=== PATIENT | female | born 1945 | race Caucasian/White ===

== ENCOUNTER → 2016-08-30 | Outpatient (CLI) | payer MEDICARE, BC ==
[~2016-08-30] MED LIST: FUROSEMIDE 40 MG/4 ML INJECTION ONE; IOHEXOL 350mg/ml 200ml BOTTLE ONE; SALINE FLUSH 10ml SYRINGE ONE
--- NOTE | 2016-08-30 09:53 | DI ---
Indication: ITS.REASON: N13.30 HX OF RT UPJ OBSTRUCTION PROCEDURE: CT RENAL W/O CONTRAST: Encounter: Initial Comparison: None Technique: Axial CT images were performed through the abdomen and pelvis without intravenous contrast. Coronal and sagittal two-dimensional reformats. Automated Exposure Control and Iterative Reconstruction dose reducing techniques were utilized. Findings: Small groundglass opacities in the lower lobes could be due to atelectasis or scarring. Multiple low-attenuation liver lesions, some of which show fluid attenuation and are consistent with benign cysts while others are indeterminate. There is one in the right lobe on image #23 measuring up to 3 cm in diameter with an attenuation of 40 Hounsfield units. Large hiatal hernia with a partially intrathoracic stomach. The spleen is unremarkable. The pancreas and left adrenal gland are normal. Right adrenal gland shows adenomatous hyperplasia. Right kidney is absent. Left kidney shows a hyperdense cyst in the lateral aspect measuring 1 cm in diameter on axial image #30. There are vascular calcifications present without definite collecting system stone. Prominence of the ureteropelvic junction and mild hydronephrosis. No left ureteral stone. There is a hazy appearance to the abdominal mesentery with increased prominence of central mesenteric lymph nodes. No retroperitoneal adenopathy by CT size criteria. Surgical clips in the pelvis. Bladder is grossly normal. No free fluid. Sigmoid diverticulosis without evidence of acute diverticulitis. No bowel obstruction. Bone windows show demineralization and degenerative changes in the spine. Impression: 1. Indeterminate lesion in the right hepatic lobe could represent a complex or proteinaceous cyst or possibly metastasis. Given history of right nephrectomy there are presumably outside imaging studies which may be able to evaluate the chronicity of this lesion. If outside comparisons are unavailable recommend further evaluation with liver ultrasound. 2. Mild left hydronephrosis without clear cause of obstruction. 3. Changes of right radical nephrectomy with probable postoperative mesenteric infiltration and stranding which is likely chronic. .
--- NOTE | 2016-08-30 11:12 | DI ---
Indication: ITS.REASON: N13.30 HX OF RT UPJ OBSTRUCTION PROCEDURE: NM RENAL SCAN W/LASIX: Encounter: Initial Comparison: Renal CT from today Indication: The patient is a 71-year-old female with a history of prior right nephrectomy and urinary tract infections. This exam is requested to evaluate renal function and renal collecting system patency. Technique: 10.9 mCi of Tc-99m MAG3 was administered intravenously and posterior planar images were obtained. 23 mg of Lasix was administered intravenously at 20 minutes into the study. Time/activity curves were calculated. Findings: Arterial flow images demonstrate good perfusion of the left kidney. Excretory phase images show radiotracer collection and excretion down the collecting system. Tracer excretion is slower than normal. There is no significant effect of the Lasix administration on the rate of excretion with a half-time of 34 minutes. Mild to moderate left hydronephrosis with some retained tracer in the renal pelvis region on the 60 minute post void images. There is no evidence of high-grade obstruction of the kidney. Impression: 1. Normal perfusion of the left kidney. 2. Mild renal functional impairment with somewhat diminished rate of excretion. 3. No evidence of high-grade obstruction. 4. Mild to moderate hydronephrosis. .
== END ==
LOC: IMA 08:34
PROVIDERS: ATTEND Urology
DX: N13.30 Unspecified hydronephrosis (principal); K76.9 Liver disease, unspecified; Z90.5 Acquired absence of kidney
CPT/HCPCS: 74176; 78708; A9562; J1940

== ENCOUNTER 2016-09-18 09:36 | Day surgery (SDC) | payer MEDICARE, BC ==
[~2016-09-18] VITALS: Ht 160 cm; Wt 77.9 kg
[~2016-09-18 09:36] MED LIST changes: +AMLO10TA2 PO; +ASPI-557 PO; +ATOR40TA64 PO; -FUROSEMIDE 40 MG/4 ML INJECTION ONE; -IOHEXOL 350mg/ml 200ml BOTTLE ONE; +IRON18TA PO; +LIDOCAINE 1% (10mg/ml) 2ml SDV INJ ONE; +LISI1TAB11 PO; +METO25TA6 PO; +NORMAL SALINE 1,000 ML IV PRN; -SALINE FLUSH 10ml SYRINGE ONE; +SERT100T PO; +WARF5TAB6 PO
--- OUTSIDE RECORDS SUMMARY | 2016-09-18 09:41 | XMS REPORT ---
Author Author [facility]. Organization [facility] Address [address] [place] [address] Phone [phone] Summary purpose CCDA Sent to [facility] Chief Complaint and Reason for Visit Admit Diagnosis 1 HYPERTENSION NOS Problem list No authorized problems tracked for continuity of care are available for this visit. Encounters No authorized problems tracked for encounter diagnoses are available for this visit. Medications No home medications recorded for this patient visit Allergies, adverse reactions, alerts Allergen Category Ingredient Status Reaction Severity Onset No Allergy Information Available Drug No Allergy Information Available Active Immunizations No immunizations recorded for this patient visit Relevant diagnostic tests and/or laboratory data RESULTS Chemistry Group [id number]:30:00 Result Normal Range Units Sodium 137 134-145 mmol/L Potassium 4.7 3.6-5.0 mmol/L Chloride 99 98-107 mmol/L CO2 27 22-30 mmol/L Glucose 100 75-110 mg/dl BUN H 26 9-20 mg/dl Creatinine 1.6 0.8-1.7 mg/dl Calcium 9.2 8.4-10.2 mg/dl Special Chemistry Group [id number]:00 Result Normal Range Units TSH 0.80 0.50-6.00 uIU/mL History of procedures Procedure Code Code Type Description Date Performed Performing Physician 19956 CPT-4 METABOLIC PANEL TOTAL CA 03-18-2014 KAYCE SANDRA 36413 CPT-4 ASSAY THYROID STIM HORMONE 03-18-2014 KAYCE SANDRA Functional status No functional or cognitive status observations are available for this visit. Vital signs No authorized vital signs are available for this visit. Social history No Social History or smoking status observations were recorded for this visit. ( Unknown if ever smoked.) Treatment Plan No treatment plan text is available for this visit. Hospital discharge instructions No discharge instruction text is available for this visit.
--- OUTSIDE RECORDS SUMMARY | 2016-09-18 09:42 | XMS REPORT ---
Author Author [facility]. Organization [facility] Address [address] [place] [address] Phone [phone] Summary purpose CCDA Sent to [facility] Chief Complaint and Reason for Visit No authorized Reason for Visit (Admitting Diagnosis) is available for this visit. Problem list No authorized problems tracked for continuity of care are available for this visit. Encounters No authorized problems tracked for encounter diagnoses are available for this visit. Medications No medications recorded for this patient visit Allergies, adverse reactions, alerts Allergen Category Ingredient Status Reaction Severity Onset No Allergy Information Available Drug No Allergy Information Available Active Immunizations No immunizations recorded for this patient visit Relevant diagnostic tests and/or laboratory data RESULTS Chemistry Group [id number]:00 Result Normal Range Units Sodium 140 134-145 mmol/L Potassium 3.9 3.6-5.0 mmol/L Chloride L 96 98-107 mmol/L CO2 H 33 22-30 mmol/L Glucose 87 75-110 mg/dl BUN 19 9-20 mg/dl Creatinine 1.19 0.8-1.7 mg/dl Calcium 8.6 8.4-10.2 mg/dl History of procedures No procedures recorded for this patient visit. Functional status No functional or cognitive status [...]
--- OUTSIDE RECORDS SUMMARY | 2016-09-18 09:42 | XMS REPORT ---
Author Author [facility]. Organization [facility] Address [address] [place] [address] Phone [phone] Summary purpose CCDA Sent to [facility] Chief Complaint and Reason for Visit [...] Information Available Drug No Allergy Information Available Inactive No Known Drug Allergy No Known Drug Allergy No Known Drug Allergy Active No Known Food Allergy No Known Food Allergy No Known Food Allergy Active Immunizations No immunizations recorded for this patient visit Relevant diagnostic tests and/or laboratory data RESULTS CBC [id number]:30:00 Result Normal Range Units WBC 6.72 4.8-10.8 x103/mm3 Neutrophil % 50.7 50-70 % Lymph % 35.0 20-50 % [place] % 8.5 1.0-9.0 % Eosinophil % H 4.2 0-4 % Basophil % 1.6 0-2 % Neutrophil # 3.41 3.0-7.0 x103/mm3 Lymph # 2.35 1.0-4.0 x103/mm3 [place] # 0.57 0.0-0.8 x103/mm3 Eosinophil # 0.28 0-0.5 x103/mm3 Basophil # 0.11 0-0.2 x103/mm3 RBC L 3.60 4.20-5.40 x103/mm3 HGB L 10.6 12.0-16.0 g/dl HCT L 33.4 37.0-47.0 % MCV 92.8 81-99 FL MCH 29.4 27.0-31.0 pg MCHC L 31.7 32.0-36.0 g/dl RDW H 16.6 12-15 % Platelet 298 150-400 x103/mm3 MPV 9.2 6.0-10.0 FL Chemistry Group [id number]:30:00 Result Normal Range Units Sodium 143 134-145 mmol/L Potassium 4.7 3.6-5.0 mmol/L Chloride 100 98-107 mmol/L CO2 29 22-30 mmol/L Glucose 96 75-110 mg/dl BUN H 37 9-20 mg/dl Creatinine 1.66 0.8-1.7 mg/dl eGFR 30 ml/min. Calcium 8.9 8.4-10.2 mg/dl History of procedures No procedures [...]
--- OUTSIDE RECORDS SUMMARY | 2016-09-18 09:42 | XMS REPORT ---
Author Author [facility]. Organization [facility] Address [address] [place] [address] Phone [phone] Summary purpose CCDA Sent to [facility] Chief Complaint and Reason for Visit No authorized Reason for Visit (Admitting Diagnosis) is available for this visit. Problem list Condition Status Certainty Chronicity Onset .Altered mental status Resolved Encounters The following conditions tracked for encounter diagnoses were recorded for this visit: Finding or Diagnosis Status Certainty Chronicity Onset .Altered mental status Resolved Medications Discharge Medications Status Medication Directions Current Aleve 220 mg tablet 220 microgram(s) oral oral BID NEEDED for pain xpath-functions" xmlns:xs="[email or web address]" />PRN Current amLODIPine 5 mg tablet 5 miligram(s) oral DAILY Current Aspirin Child 81 mg chewable tablet 81 miligram(s) oral DAILY Current atorvastatin 40 mg tablet 40 miligram(s) oral DAILY Current bisacodyl 5 mg tablet 5 miligram(s) oral oral DAILY NEEDED for constipation xpath-functions" xmlns:xs="[email or web address] [email or web address]" />Bisacodyl 5 mg tabs, EC 1daily PRN Current Colace 100 mg capsule 100 miligram(s) oral DAILY Current Coumadin 1 mg tablet 3 miligram(s) oral DAILY xpath-functions" xmlns:xs="[email or web address] TechnologyLSchema" />1 mg 3 tabs daily or as directed Current Coumadin 5 mg tablet 5 miligram(s) oral DAILY Current HYDROcodone-acetaminophen (HYDROCONE/APAP) 10-325 mg: TABLET 1-2 TAB oral EVERY FOUR HOURS NEEDED for PAIN Current lisinopril 20 mg-hydrochlorothiazide 12.5 mg tablet 20 miligram(s) oral DAILY xpath-functions" xmlns:xs="[email or web address] [email or web address]" />20/12.5 mg tabs 2 daily Current MORPHINE 15 mg: Tab ER 12HR 30 MG oral EVERY TWELVE HOURS Current sertraline 100 mg tablet 100 miligram(s) oral DAILY Current Toprol XL 25 mg tablet,extended release 25 miligram(s) oral DAILY Current Zofran ODT 4 mg disintegrating tablet 4 miligram(s) oral oral QID NEEDED for nausea xpath-functions" xmlns:xs="[email or web address]" />PRN nausea Stopped HYDROcodone 5 mg-acetaminophen 325 mg tablet 10 miligram(s) oral SIX TIMES A DAY NEEDED xpath-functions" xmlns:xs="[email or web address] TechnologyLSchema" />[place] 10/325 mg. 1 or 2 tabs Q4-6 hrs PRN pain Stopped MS Contin 30 mg tablet,extended release 30 miligram(s) oral TID NEEDED xpath-functions" xmlns:xs="[email or web address] TechnologyLSTengradea" />about every 8 hours Allergies, adverse reactions, alerts Allergen Category Ingredient Status Reaction Severity Onset No Allergy Information Available Drug No Allergy Information Available Inactive No Known Drug Allergy No Known Drug Allergy No Known Drug Allergy Active No Known Food Allergy No Known Food Allergy No Known Food Allergy Active Immunizations No immunizations recorded for this patient visit Relevant diagnostic tests and/or laboratory data RESULTS [id number]:36:16 Discharge Summary decreased narcotic dosage, return to normal cognition, no other symptoms CBC [id number]:50:00 Result Normal Range Units WBC 9.76 4.8-10.8 x103/mm3 Neutrophil % H 80.1 50-70 % Lymph % L 10.5 20-50 % [place] % 8.5 1.0-9.0 % Eosinophil % 0.5 0-4 % Basophil % 0.4 0-2 % Neutrophil # H 7.82 3.0-7.0 x103/mm3 Lymph # 1.02 1.0-4.0 x103/mm3 [place] # H 0.83 0.0-0.8 x103/mm3 Eosinophil # 0.05 0-0.5 x103/mm3 Basophil # 0.04 0-0.2 x103/mm3 RBC L 4.06 4.20-5.40 x103/mm3 HGB 12.8 12.0-16.0 g/dl HCT 37.3 37.0-47.0 % MCV 91.9 81-99 FL MCH H 31.5 27.0-31.0 pg MCHC 34.3 32.0-36.0 g/dl RDW 14.9 12-15 % Platelet 237 150-400 x103/mm3 MPV 8.7 6.0-10.0 FL Urinalysis :15:00 Result Normal Range Units Site UNK Color Yellow Urine Appearance Clear Specific [place] 1.005 1.005-1.030 pH 5.5 5.0-9.0 Protein Negative Negative Glucose Negative Negative Ketones Negative Negative Bilirubin Negative Negative Blood AB Trace-inta Negative Nitrite Negative Negative Urobilinogen 0.2 0.20 mg/dl Leukocyte Negative Negative Squamous Epi's N6-10 Urine Bacteria Trace Urine RBC N0-2 Urine WBC N0-2 Chemistry Group :50:00 Result Normal Range Units Sodium L 131 134-145 mmol/L Potassium 4.3 3.6-5.0 mmol/L Chloride L 86 98-107 mmol/L CO2 H 31 22-30 mmol/L Glucose H 111 75-110 mg/dl BUN H 35 9-20 mg/dl Creatinine 1.45 0.8-1.7 mg/dl Total Protein L 5.9 6.3-8.2 g/dl Albumin L 3.3 3.5-5.0 g/dl Calcium L 8.3 8.4-10.2 mg/dl Alk Phos 57 38-126 U/L AST 26 14-36 U/L ALT 17 11-66 U/L T Bili .4 0.2-1.3 mg/dl A/G Ratio 1.3 Ratio Coagulation Group :50:00 Result Normal Range Units Protime H 18.5 9.5-12.3 Sec INR 1.7 Urinalysis with Microscopic :15:00 Result Normal Range Units Site UNK Color Yellow Urine Appearance Clear Specific [place] 1.005 1.005-1.030 pH 5.5 5.0-9.0 Protein Negative Negative Glucose Negative Negative Ketones Negative Negative Bilirubin Negative Negative Blood AB Trace-inta Negative Nitrite Negative Negative Urobilinogen 0.2 0.20 mg/dl Leukocyte Negative Negative Squamous Epi's N6-10 Urine Bacteria Trace Urine RBC N0-2 Urine WBC N0-2 History of procedures No procedures recorded for this patient visit. Functional status Functional Status Finding Observation Time Dexterity Right-handed :59 Impaired Extremity o Yes (Please Specify) xpath-functions" xmlns:xs="http://[email or web address]/2000/XMLSchema" /> xpath-functions" xmlns:xs="http://www.DuPontorg/XMLSchema" />Comment: left leg weakness :59 Weight Bearing Statu Full :07 Transferring/Ambulat Needs Assistance :59 Cane Yes :59 Walker Yes :59 Cognitive Status Finding Observation Time Level of Consciousne Alert :44 Oriented to Person Yes :[address] Yes :44 Oriented to Time Yes :44 Vital signs Type Value Date Respirations 16 :12 Pulse 84 :12 O2 Saturation 94% :12 Systolic Blood Press 142mm/HG :12 Diastolic Blood Pres 67mm/HG :12 Temperature (Fahr) 97.6Degrees :12 Height 63in :07 Weight 153.4LB :07 Social history Type Value Smoking Status CURRENT HEAVY TOBACCO SMOKER Treatment Plan Treatment Plan at continue lower narcotic dosage, follow up next week Hospital discharge instructions Diagnosis altered mental status Diet no restrictions Activity Level no restrictions Personal Items Retur non received Flu Vaccine Given Current/Not Needed Follow up with Dr Ortiz Appointment Date and no made
--- OUTSIDE RECORDS SUMMARY | 2016-09-18 09:42 | XMS REPORT ---
Author Author [facility]. Organization [facility] Address [address] [place] [address] Phone [phone] Summary purpose CCDA Sent to [facility] Chief Complaint and Reason for Visit [...] tests and/or laboratory data RESULTS Chemistry Group [id number]:55:00 Result Normal Range Units Sodium 139 134-145 mmol/L Potassium 4.6 3.6-5.0 mmol/L Chloride 98 98-107 mmol/L CO2 H 31 22-30 mmol/L Glucose 90 75-110 mg/dl BUN H 28 9-20 mg/dl Creatinine 1.4 0.8-1.7 mg/dl Calcium 9.2 8.4-10.2 mg/dl History of procedures No procedures [...]
--- OUTSIDE RECORDS SUMMARY | 2016-09-18 09:42 | XMS REPORT ---
Author Author [facility]. Organization [facility] Address [address] [place] [address] Phone [phone] Summary purpose CCDA Sent to [facility] Chief Complaint and Reason for Visit [...] diagnostic tests and/or laboratory data RESULTS CBC [id number]:55:00 Result Normal Range Units WBC H 11.83 4.8-10.8 x103/mm3 Neutrophil % 69.4 50-70 % Lymph % L 19.5 20-50 % [place] % 7.9 1.0-9.0 % Eosinophil % 2.6 0-4 % Basophil % 0.6 0-2 % Neutrophil # H 8.20 3.0-7.0 x103/mm3 Lymph # 2.31 1.0-4.0 x103/mm3 [place] # H 0.94 0.0-0.8 x103/mm3 Eosinophil # 0.31 0-0.5 x103/mm3 Basophil # 0.07 0-0.2 x103/mm3 RBC 4.67 4.20-5.40 x103/mm3 HGB 14.8 12.0-16.0 g/dl HCT 42.3 37.0-47.0 % MCV 90.6 81-99 FL MCH H 31.7 27.0-31.0 pg MCHC 35.0 32.0-36.0 g/dl RDW 14.9 12-15 % Platelet 262 150-400 x103/mm3 MPV H 10.1 6.0-10.0 FL Chemistry Group [id number]:00 Result Normal Range Units Sodium L 131 134-145 mmol/L Potassium 3.8 3.6-5.0 mmol/L Chloride L 86 98-107 mmol/L CO2 29 22-30 mmol/L Glucose 100 75-110 mg/dl BUN H 30 9-20 mg/dl Creatinine 1.27 0.8-1.7 mg/dl Total Protein 7.3 6.3-8.2 g/dl Albumin 3.8 3.5-5.0 g/dl Calcium 9.3 8.4-10.2 mg/dl Alk Phos 72 38-126 U/L AST 31 14-36 U/L ALT L 10 11-66 U/L T Bili .5 0.2-1.3 mg/dl A/G Ratio 1.1 Ratio History of procedures No procedures recorded for [...]
--- OUTSIDE RECORDS SUMMARY | 2016-09-18 09:42 | XMS REPORT ---
Author Author [facility]. Organization [facility] Address [address] [place] [address] Phone [phone] Summary purpose CCDA Sent to [facility] Chief Complaint and Reason for Visit [...] diagnostic tests and/or laboratory data RESULTS CBC [id number]:25:00 Result Normal Range Units WBC H 14.04 4.8-10.8 x103/mm3 Result Amended on 2016-08-03 at 09:50:28. Previous status was FR. Neutrophil % 67.6 50-70 % Result Amended on 2016-08-03 at 09:50:28. Previous status was FR. Lymph % 23.9 20-50 % Result Amended on 2016-08-03 at 09:50:28. Previous status was FR. [place] % 6.1 1.0-9.0 % Result Amended on 2016-08-03 at 09:50:28. Previous status was FR. Eosinophil % 1.9 0-4 % Result Amended on 2016-08-03 at 09:50:28. Previous status was FR. Basophil % 0.5 0-2 % Result Amended on 2016-08-03 at 09:50:28. Previous status was FR. Neutrophil # H 9.50 3.0-7.0 x103/mm3 Result Amended on 2016-08-03 at 09:50:28. Previous status was FR. Lymph # 3.36 1.0-4.0 x103/mm3 Result Amended on 2016-08-03 at 09:50:28. Previous status was FR. [place] # H 0.85 0.0-0.8 x103/mm3 Result Amended on 2016-08-03 at 09:50:28. Previous status was FR. Eosinophil # 0.26 0-0.5 x103/mm3 Result Amended on 2016-08-03 at 09:50:28. Previous status was FR. Basophil # 0.07 0-0.2 x103/mm3 Result Amended on 2016-08-03 at 09:50:28. Previous status was FR. RBC L 3.13 4.20-5.40 x103/mm3 Result Amended on 2016-08-03 at 09:50:28. Previous status was FR. HGB L 9.1 12.0-16.0 g/dl Result Amended on 2016-08-03 at 09:50:28. Previous status was FR. HCT L 28.4 37.0-47.0 % Result Amended on 2016-08-03 at 09:50:28. Previous status was FR. MCV 90.7 81-99 FL Result Amended on 2016-08-03 at 09:50:28. Previous status was FR. MCH 29.1 27.0-31.0 pg Result Amended on 2016-08-03 at 09:50:28. Previous status was FR. MCHC 32.0 32.0-36.0 g/dl Result Amended on 2016-08-03 at 09:50:28. Previous status was FR. RDW H 15.5 12-15 % Result Amended on 2016-08-03 at 09:50:28. Previous status was FR. Platelet HC 715 150-400 x103/mm3 Result Amended on 2016-08-03 at 09:50:28. Previous status was FR. CALLEDTO PEÑA AT 09:50 08-03-16 BY LAD MPV 9.3 6.0-10.0 FL Result Amended on 2016-08-03 at 09:50:29. Previous status was FR. Manual Differential :25:00 Result Normal Range Units Seg 64.0 Lymph 29.0 [place] 4.0 Eos 2.0 Bands 1.0 Anisocytosis 1+ Polychromatic 1+ Rouleaux 1+ Chemistry Group :25:00 Result Normal Range Units Sodium 138 134-145 mmol/L Potassium H 5.4 3.6-5.0 mmol/L Chloride 99 98-107 mmol/L CO2 30 22-30 mmol/L Glucose 108 75-110 mg/dl BUN H 31 9-20 mg/dl Creatinine H 1.96 0.8-1.7 mg/dl eGFR 25 ml/min. Calcium 9.0 8.4-10.2 mg/dl History of procedures No procedures [...]
--- OUTSIDE RECORDS SUMMARY | 2016-09-18 09:42 | XMS REPORT | Continuity Of Care Document ---
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 Suggested INR therapeutic range for oral anticoagulant therapy: (Stabilized anticoagulated patients) Routine Therapy: 2.0 to 3.0 Recurrent Myocardial Infarction: 2.5 to 3.5 Mechanical Prosthetic Valves: 2.5 to 3.5 November 18, 2015 8:00am Allergies and Adverse Reactions Allergies and Adverse Reactions Patient Unit Number: [id number] Agent Type Reaction Severity Status NO KNOWN ALLERGIES Drug Allergy Unknown Unknown Active Problem List Problem List Visit/Account #[id number] (November 18, 2015 7:16am - November 19, 2015 9:54am) Acute Problems: Code/Condition Comments Documented Start Date Documented Resolved Date Code (s) Lumbar disc prolapse with compression radiculopathy ICD10: M51.16 Lumbar disc herniation with radiculopathy ICD9: 722.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 SNOMED: 126266780 Lumbar disc herniation with radiculopathy Chronic Problems: Synovial cyst of lumbar facet joint ICD10: M85.69 Synovial cyst of lumbar facet joint ICD9: 733.20 Synovial cyst of lumbar facet joint SNOMED: [id number] Synovial cyst of lumbar facet joint Plan of Care Plan Of Care Visit/Account #[id number] (November 18, 2015 7:16am - November 19, 2015 9:54am) Patient Instructions Instructions Diazepam Vital Signs Vital Signs Visit/Account #[id number] (November 18, 2015 7:16am - November 19, 2015 9:54am) Sign First Result Last Result Code(s) Blood Pressure 163/ 73 mm[Hg] On November 18, 2015 11:55am 174/ 82 mm[Hg] On November 19, 2015 9:19am 8480-6 BP Systolic Heart Rate/Pulse Pulse Rate (adult): 52 /min On November 18, 2015 11:55am Pulse Rate (adult): 69 /min On November 19, 2015 9:19am 8867-4 Heart Rate 8893-0 Pulse rate Respiratory Rate Respiratory Rate: 13 /min On November 18, 2015 11:55am Respiratory Rate: 16 /min On November 19, 2015 9:19am 9279-1 Respiratory rate Temperature in Fahrenheit Temperature (Fahrenheit): 98.1 [degF] On November 18, 2015 7:33am Temperature (Fahrenheit): 97.8 [degF] On November 19, 2015 9:19am 8310-5 Body Temperature Functional Status Functional and Cognitive Status No Functional Status Data Medications Home Medications - Medications that the patient was taking prior to arrival at the hospital Visit/Account #[id number] (November 18, 2015 7:16am - November 19, 2015 9:54am) Medication Route Sig/Schedule Precondition/Indication Comments/Instructions Codes Sertraline Hcl(SERTRALINE HCL) 100 MG TABLET Dose: 100 MG ORAL DAILY Sertraline 100 MG Oral Tablet (RxNorm): 294540 Sertraline Hcl (SERTRALINE HCL) [facility]: 84994941890 Lisinopril-Hctz 20-12.5 Mg Tab(LISINOPRIL/HYDROCHLOROTHIAZIDE) 1 EACH TABLET Dose: 1 EACH ORAL TWICE A DAY Hydrochlorothiazide 12.5 MG / Lisinopril 20 MG Oral Tablet (RxNorm): 529434 Lisinopril-Hctz 20-12.5 Mg Tab (LISINOPRIL/HYDROCHLOROTHIAZIDE) NDC: 88124248910 Metoprolol Succinate(METOPROLOL SUCCINATE) 25 MG TAB.ER.24H Dose: 25 MG ORAL DAILY 24 HR metoprolol succinate 25 MG Extended Release Oral Tablet (RxNorm): 781592 Metoprolol Succinate (METOPROLOL SUCCINATE) NDC: 63556401255 LIPITOR(ATORVASTATIN) 40 MG TAB Dose: 40 MG ORAL AT BEDTIME atorvastatin 40 MG Oral Tablet [Lipitor] (RxNorm): 727030 LIPITOR (ATORVASTATIN) NDC: 22707427907 HYDROcodone BIT/ACETAMINOPHEN 7.5-325 MG(HYDROcodone BIT/ACETAMINOPHEN) 1 EACH TABLET Dose: 1-2 TAB ORAL Q4H PAIN Acetaminophen 325 MG / Hydrocodone Bitartrate 7.5 MG Oral Tablet [Lorcet] ( RxNorm): 6566416 HYDROcodone BIT/ACETAMINOPHEN 7.5-325 MG (HYDROcodone BIT/ACETAMINOPHEN) NDC: 11857640317 Low Dose Aspirin(ASPIRIN) 81 MG TABLET.DR Dose: 81 MG ORAL DAILY Aspirin 81 MG Delayed Release Oral Tablet [Channing Aspirin] (RxNorm): 531581 Low Dose Aspirin (ASPIRIN) NDC: 14601085653 STOOL SOFTENER(DOCUSATE SODIUM) 100 MG TABLET Dose: 2 TAB ORAL DAILY Docusate Sodium 100 MG Oral Tablet (RxNorm): 3199954 STOOL SOFTENER (DOCUSATE SODIUM) NDC: 26280108077 Warfarin Sodium(WARFARIN SODIUM) 5 MG TABLET Dose: 2.5 MG ORAL DAILY Warfarin Sodium 5 MG Oral Tablet (RxNorm): 576305 Warfarin Sodium (WARFARIN SODIUM) NDC: 77246863750 NORCO 7.5-325 TABLET(HYDROcodone BIT/ACETAMINOPHEN) 1 TAB TABLET Dose: 1-2 TAB ORAL EVERY 4 HRS WHILE AWAKE Acetaminophen 325 MG / Hydrocodone Bitartrate 7.5 MG Oral Tablet (RxNorm): 244219 NORCO 7.5-325 TABLET (HYDROcodone BIT/ACETAMINOPHEN) NDC: 24152078179 MORPHINE SULFATE ER(MORPHINE SULFATE) 30 MG CAP.ER.PEL Dose: 30 MG ORAL EVERY 12 HOURS Morphine Sulfate 30 MG Extended Release Oral Capsule (RxNorm): 722135 MORPHINE SULFATE ER (MORPHINE SULFATE) NDC: 15672652339 NORVASC(AmLODIpine BESYLATE) 5 MG TAB Dose: 2 TAB ORAL DAILY Amlodipine 5 MG Oral Tablet [Norvasc] (RxNorm): 450844 NORVASC (AmLODIpine BESYLATE) NDC: 52510448980 COUMADIN(WARFARIN SODIUM) 5 MG TAB Dose: 5 MG ORAL DIRECTED Rx Instructions: take 1/2 tab for 3 days take 1 tab for 1 day Take 1/2 tab for 3 days Warfarin Sodium 5 MG Oral Tablet [Coumadin] (RxNorm): 347325 COUMADIN (WARFARIN SODIUM) NDC: 47910305957 Inpatient/Ordered Medications - Medications administered during hospital visit Visit/Account #[id number] (November 18, 2015 7:16am - November 19, 2015 9:54am) Medication Route Sig/Schedule Precondition/Indication Comments/Instructions Codes IV Medication Carriers: LR(LACTATED RINGER'S) 1000 ML INJECTION Dose: 1000 ML INTRAVEN .Q8H (Rate: 125 MLS/HR Duration: 8 HR) Carriers: Calcium Chloride 0.0014 MEQ/ML / Potassium Chloride 0.004 MEQ/ML / Sodium Chloride 0.103 MEQ (RxNorm): 547151 LR (LACTATED RINGER'S) NDC: 48603803527 IV Medication Carriers: ANCEF 2 GM/50 ML(CEFAZOLIN SODIUM/NORMAL SALINE) 2 GM/50 ML INJECTION Dose: 50 ML INTRAVEN KIRBY (Rate: 100 MLS/HR Duration: 30 MIN) Clinical Indication: ABX Preop Prophylaxis Label Comments: REFRIGERATE * PROTECT FROM LIGHT * ANCEF=KEFZOL Expires 24 HRS after dispensed XYLOCAINE-MPF 1% INJ(LIDOCAINE HCL/PF) 20 MG/2 ML INJECTION Dose: 0.1 ML INTRADERM NEEDED Label Comments: For peripheral line insertion site. Lidocaine Hydrochloride 10 MG/ML Injectable Solution [Xylocaine] (RxNorm): 9795727 XYLOCAINE-MPF 1% INJ (LIDOCAINE HCL/PF) NDC: 23155790155 THROMBIN 5000 UNIT SOLUTION Dose: 5000 UNIT TOPICALLY .STK-MED (THROMBIN) NDC: 56433544296 GELFOAM SPONGE 12-7MM(GELATIN) 1 EA MISC Dose: 1 EA TOPICALLY .STK-MED GELFOAM SPONGE 12-7MM (GELATIN) NDC: 69066628213 MARCAINE 0.5% INJ(BUPIVACAINE 0.5%) 50 ML INJECTION Dose: 50 ML Route .[facility] Bupivacaine Hydrochloride 5 MG/ML Injectable Solution [Marcaine] (RxNorm): 2116665 MARCAINE 0.5% INJ (BUPIVACAINE 0.5%) NDC: 73172377892 DECADRON INJ(DEXAMETHASONE SOD PHOS) 10 MG/ML INJECTION Dose: 0.8 ML INTRAVEN .PSCU.KIRBY Dexamethasone 10 MG/ML Injectable Solution (RxNorm): 615238 DECADRON INJ (DEXAMETHASONE SOD PHOS) NDC: 97616111338 VERSED INJ(MIDAZOLAM HCL) 2 MG/2 ML INJECTION Dose: 2 ML INTRAVEN .PSCU.KIRBY 2 ML Midazolam 1 MG/ML Injection (RxNorm): 0162915 VERSED INJ (MIDAZOLAM HCL) NDC: 74665333468 IV Medication Carriers: MORPHINE SULFATE 30 MG/30 ML SYRINGE Dose: 30 MG INTRAVEN PRN (Rate: 0 MLS/HR Duration: 0 SEC) PRN Reason: PAIN Label Comments: CONC: 1 MG/ML 1 MG/6 MIN AND 30 MG/4 HR LOCKOUT BASAL INFUSION RATE: ____ MG/HR=____ ML/HR DO NOT USE ALARIS BOLUS FEATURE MAY INCREASE FALL RISK Carriers: Morphine Sulfate 1 MG/ML Injectable Solution (RxNorm): 240776 (MORPHINE SULFATE) NDC: 34623475547 Solu-MEDROL INJ(MethylPREDNISolone SOD SUCC) 125 MG/2 ML INJECTION Dose: 2 ML INTRAVEN NOW Methylprednisolone 62.5 MG/ML Injectable Solution [Solu-Medrol] (RxNorm): 707402 Solu-MEDROL INJ (MethylPREDNISolone SOD SUCC) NDC: 85720388081 IV Medication Carriers: LR(LACTATED RINGER'S) 1000 ML INJECTION Dose: 1000 ML INTRAVEN .Q10H (Rate: 100 MLS/HR Duration: 10 HR) Carriers: Calcium Chloride 0.0014 MEQ/ML / Potassium Chloride 0.004 MEQ/ML / Sodium Chloride 0.103 MEQ (RxNorm): 333330 LR (LACTATED RINGER'S) NDC: 79016994790 IV Medication Carriers: ANCEF 2 GM/50 ML(CEFAZOLIN SODIUM/NORMAL SALINE) 2 GM/50 ML INJECTION Dose: 50 ML INTRAVEN Q8S (Rate: 100 MLS/HR Duration: 30 MIN) Clinical Indication: ABX Preop Prophylaxis Label Comments: Refrigerate IVPB * Protect from light * NORVASC(AmLODIpine BESYLATE) 5 MG TAB Dose: 10 MG ORAL DAILY Label Comments: MAY INCREASE FALL RISK Amlodipine 5 MG Oral Tablet [Norvasc] (RxNorm): 564967 NORVASC (AmLODIpine BESYLATE) NDC: 45689122426 LIPITOR(ATORVASTATIN) 40 MG TAB Dose: 40 MG ORAL AT BEDTIME Label Comments: TERATOGENIC. WOMEN SHOULD NOT HANDLE OR CRUSH. atorvastatin 40 MG Oral Tablet [Lipitor] (RxNorm): 590590 LIPITOR (ATORVASTATIN) NDC: 80057295127 COLACE(DOCUSATE SODIUM) 100 MG CAP Dose: 200 MG ORAL DAILY Docusate Sodium 100 MG Oral Capsule (RxNorm): 3668791 COLACE (DOCUSATE SODIUM) NDC: 34566465137 ZESTORETIC 20/12.5(HCTZ/LISINOPRIL) 1 TAB TAB Dose: 1 TAB ORAL TWICE A DAY Label Comments: MAY INCREASE FALL RISK Hydrochlorothiazide 12.5 MG / Lisinopril 20 MG Oral Tablet (RxNorm): 390173 ZESTORETIC 20/12.5 (HCTZ/LISINOPRIL) NDC: 19028275557 TOPROL XL(METOPROLOL SUCCINATE) 25 MG TAB Dose: 25 MG ORAL DAILY Label Comments: MAY INCREASE FALL RISK 24 HR metoprolol succinate 25 MG Extended Release Oral Tablet [Toprol] (RxNorm ): 330506 TOPROL XL (METOPROLOL SUCCINATE) NDC: 02687158757 ZOLOFT(SERTRALINE HCL) 100 MG TAB Dose: 100 MG ORAL DAILY Label Comments: MAY INCREASE FALL RISK Sertraline 100 MG Oral Tablet [Zoloft] (RxNorm): 379049 ZOLOFT (SERTRALINE HCL) NDC: 87678624997 MS CONTIN(MORPHINE SULFATE) 30 MG TAB Dose: 30 MG ORAL EVERY 12 HOURS Label Comments: MAY INCREASE FALL RISK Morphine Sulfate 30 MG Extended Release Oral Tablet (RxNorm): 113105 MS CONTIN (MORPHINE SULFATE) NDC: 18669008832 Discharge Medications - Medications that patient should continue to take. Review with physician Visit/Account #[id number] (November 18, 2015 7:16am - November 19, 2015 9:54am) Medication Route Sig/Schedule Precondition/Indication Comments/Instructions Codes Sertraline Hcl(SERTRALINE HCL) 100 MG TABLET Dose: 100 MG ORAL DAILY Sertraline 100 MG Oral Tablet (RxNorm): 222672 Sertraline Hcl (SERTRALINE HCL) NDC: 72714301451 Lisinopril-Hctz 20-12.5 Mg Tab(LISINOPRIL/HYDROCHLOROTHIAZIDE) 1 EACH TABLET Dose: 1 EACH ORAL TWICE A DAY Hydrochlorothiazide 12.5 MG / Lisinopril 20 MG Oral Tablet (RxNorm): 085462 Lisinopril-Hctz 20-12.5 Mg Tab (LISINOPRIL/HYDROCHLOROTHIAZIDE) NDC: 16966418334 Metoprolol Succinate(METOPROLOL SUCCINATE) 25 MG TAB.ER.24H Dose: 25 MG ORAL DAILY 24 HR metoprolol succinate 25 MG Extended Release Oral Tablet (RxNorm): 654578 Metoprolol Succinate (METOPROLOL SUCCINATE) NDC: 81884181486 LIPITOR(ATORVASTATIN) 40 MG TAB Dose: 40 MG ORAL AT BEDTIME atorvastatin 40 MG Oral Tablet [Lipitor] (RxNorm): 097615 LIPITOR (ATORVASTATIN) NDC: 38506635163 HYDROcodone BIT/ACETAMINOPHEN 7.5-325 MG(HYDROcodone BIT/ACETAMINOPHEN) 1 EACH TABLET Dose: 1-2 TAB ORAL Q4H PAIN Acetaminophen 325 MG / Hydrocodone Bitartrate 7.5 MG Oral Tablet [Lorcet] ( RxNorm): 1524244 HYDROcodone BIT/ACETAMINOPHEN 7.5-325 MG (HYDROcodone BIT/ACETAMINOPHEN) NDC: 24983795074 Low Dose Aspirin(ASPIRIN) 81 MG TABLET.DR Dose: 81 MG ORAL DAILY Aspirin 81 MG Delayed Release Oral Tablet [Channing Aspirin] (RxNorm): 200001 Low Dose Aspirin (ASPIRIN) NDC: 58617421265 STOOL SOFTENER(DOCUSATE SODIUM) 100 MG TABLET Dose: 2 TAB ORAL DAILY Docusate Sodium 100 MG Oral Tablet (RxNorm): 3959033 STOOL SOFTENER (DOCUSATE SODIUM) NDC: 53014137446 MORPHINE SULFATE ER(MORPHINE SULFATE) 30 MG CAP.ER.PEL Dose: 30 MG ORAL EVERY 12 HOURS Morphine Sulfate 30 MG Extended Release Oral Capsule (RxNorm): 075687 MORPHINE SULFATE ER (MORPHINE SULFATE) NDC: 22499606911 NORVASC(AmLODIpine BESYLATE) 5 MG TAB Dose: 2 TAB ORAL DAILY Amlodipine 5 MG Oral Tablet [Norvasc] (RxNorm): 319819 NORVASC (AmLODIpine BESYLATE) NDC: 95755488464 COUMADIN(WARFARIN SODIUM) 5 MG TAB Dose: 5 MG ORAL DIRECTED Rx Instructions: take 1/2 tab for 3 days take 1 tab for 1 day Take 1/2 tab for 3 days Warfarin Sodium 5 MG Oral Tablet [Coumadin] (RxNorm): 274128 COUMADIN (WARFARIN SODIUM) NDC: 21204585867 Valium(DIAZEPAM) 5 MG TAB Dose: 5 MG ORAL 3 TIMES A DAY SPASM Diazepam 5 MG Oral Tablet (RxNorm): 218405 Valium (DIAZEPAM) NDC: 08105921598 History Of Encounters Encounters Visit/Account #[id number] (November 18, 2015 7:16am - November 19, 2015 9:54am) Account Status Physican Of Record Reason For Visit Visit Diagnosis Start Date/Time Stop Date/Time [facility] Z[place] MD LOW BACK PAIN M54.5: LOW BACK PAIN ICD10 Nov 18, 2015 7:16am Nov 18, 2015 7:16am Jeff DEBRA ZAPATA MD LOW BACK PAIN M54.5: LOW BACK PAIN ICD10 Nov 18, 2015 11:58am Nov 19, 2015 9:54am History of Procedures Procedure List No procedures recorded. Discharge Instructions Discharge Instructions Visit/Account #[id number] (November 18, 2015 7:16am - November 19, 2015 9:54am) DISCHARGE INSTRUCTIONS Physician Documentation PROVIDER INSTRUCTIONS Discharge Diet As Tolerated Discharge Diet As Tolerated WOUND/INCISION/CATHETER CARE Incision/Wound Care Clean the ekaterina after taking a shower using spray peroxide + Q-tips and rubbing alcohol. Then apply NormlGel directly over the ekaterina and reapply the dressing. Do not seal off the incision completely, it needs to air out. You do not need to redress the wound after the ekaterina are out. REASON TO CALL PROVIDER Notify Physician if: incision becomes reddened, hot to the touch, pus like drainage or drainage with a foul odor temperature >101.5 any questions/concerns/problems FOLLOW UP APPOINTMENTS Follow Up With With Dr. Zapata Monday November 30, 2015 @ 9:45 a.m. Social History Social History No Social History Data. Immunizations Immunizations Patient Unit Number: [id number] Immunizations No immunizations recorded.
--- OUTSIDE RECORDS SUMMARY | 2016-09-18 09:43 | XMS REPORT ---
Author Author [facility]. Organization [facility] Address [address] [place] [address] Phone [phone] Summary purpose CCDA Sent to [facility] Chief Complaint and Reason for Visit No [...] visit Relevant diagnostic tests and/or laboratory data No authorized results are available for this patient visit History of procedures No procedures recorded for this patient visit. Functional status No functional or cognitive status observations are available for this visit. Vital signs Type Value Date Respirations 20 :00 Pulse 65 :00 O2 Saturation 97% :00 Systolic Blood Press 200mm/HG :00 Diastolic Blood Pres 105mm/HG :00 Temperature (Fahr) 98.5Degrees :00 Social history No Social History or smoking status observations were recorded for this visit. ( Unknown if ever smoked.) Treatment Plan No treatment plan text is available for this visit. Hospital discharge instructions No discharge instruction text is available for this visit.
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
--- OUTSIDE RECORDS SUMMARY | 2016-09-18 09:43 | XMS REPORT ---
Author Author [facility]. Organization [facility] Address [address] [place] [address] Phone [phone] Summary purpose CCDA Sent to [facility] Chief Complaint and Reason for Visit No [...] diagnostic tests and/or laboratory data RESULTS CBC [id number] Result Normal Range Units WBC HC 15.11 4.8-10.8 x103/mm3 Result Amended on 2015-06-30 at 13:18:33. Previous status was FR. Neutrophil % H 80.7 50-70 % Result Amended on 2015-06-30 at 13:18:33. Previous status was FR. Lymph % L 10.5 20-50 % Result Amended on 2015-06-30 at 13:18:33. Previous status was FR. Sampson % 8.4 1.0-9.0 % Result Amended on 2015-06-30 at 13:18:33. Previous status was FR. Eosinophil % 0.1 0-4 % Result Amended on 2015-06-30 at 13:18:33. Previous status was FR. Basophil % 0.3 0-2 % Result Amended on 2015-06-30 at 13:18:33. Previous status was FR. Neutrophil # H 12.19 3.0-7.0 x103/mm3 Result Amended on 2015-06-30 at 13:18:33. Previous status was FR. Lymph # 1.59 1.0-4.0 x103/mm3 Result Amended on 2015-06-30 at 13:18:33. Previous status was FR. Sampson # H 1.27 0.0-0.8 x103/mm3 Result Amended on 2015-06-30 at 13:18:33. Previous status was FR. Eosinophil # 0.02 0-0.5 x103/mm3 Result Amended on 2015-06-30 at 13:18:33. Previous status was FR. Basophil # 0.04 0-0.2 x103/mm3 Result Amended on 2015-06-30 at 13:18:33. Previous status was FR. RBC 5.04 4.20-5.40 x103/mm3 Result Amended on 2015-06-30 at 13:18:34. Previous status was FR. HGB 15.7 12.0-16.0 g/dl Result Amended on 2015-06-30 at 13:18:34. Previous status was FR. HCT 46.1 37.0-47.0 % Result Amended on 2015-06-30 at 13:18:34. Previous status was FR. MCV 91.5 81-99 FL Result Amended on 2015-06-30 at 13:18:34. Previous status was FR. MCH H 31.2 27.0-31.0 pg Result Amended on 2015-06-30 at 13:18:34. Previous status was FR. MCHC 34.1 32.0-36.0 g/dl Result Amended on 2015-06-30 at 13:18:34. Previous status was FR. RDW 13.9 12-15 % Result Amended on 2015-06-30 at 13:18:34. Previous status was FR. Platelet 237 150-400 x103/mm3 Result Amended on 2015-06-30 at 13:18:34. Previous status was FR. MPV 9.8 6.0-10.0 FL Result Amended on 2015-06-30 at 13:18:34. Previous status was FR. Manual Differential [id number] Result Normal Range Units Seg 71.0 Lymph 17.0 Sampson 7.0 Bands 5.0 Chemistry Group [id number] Result Normal Range Units Sodium 136 134-145 mmol/L Potassium L 3.5 3.6-5.0 mmol/L Chloride L 93 98-107 mmol/L CO2 29 22-30 mmol/L Glucose H 112 75-110 mg/dl BUN H 21 9-20 mg/dl Creatinine 1.20 0.8-1.7 mg/dl Total Protein 7.7 6.3-8.2 g/dl Albumin 3.9 3.5-5.0 g/dl Calcium 9.4 8.4-10.2 mg/dl Alk Phos 80 38-126 U/L AST 31 14-36 U/L ALT 13 11-66 U/L T Bili 1.0 0.2-1.3 mg/dl A/G Ratio 1.0 Ratio Special Chemistry Group [id number] Result Normal Range Units Troponin I < 0.06 ng/ml NEGATIVE - 0.06-0.30 ng/ml INCONCLUSIVE - 0.31-0.64 ng/ml; Suggest Repeating in 2-4 hours POSITIVE - >0.64 ng/ml; Probable AMI History of procedures No procedures recorded for [...]
--- OUTSIDE RECORDS SUMMARY | 2016-09-18 09:44 | XMS REPORT ---
Author Author [facility]. Organization [facility] Address [address] [place] [address] Phone [phone] Summary purpose CCDA Sent to [facility] Chief Complaint and Reason for Visit Admit [...] tests and/or laboratory data RESULTS Chemistry Group [id number] Result Normal Range Units Sodium 139 134-145 mmol/L Potassium 4.6 3.6-5.0 mmol/L Chloride 98 98-107 mmol/L CO2 H 31 22-30 mmol/L Glucose 90 75-110 mg/dl BUN H 28 9-20 mg/dl Creatinine 1.4 0.8-1.7 mg/dl Calcium 9.2 8.4-10.2 mg/dl History of procedures Procedure Code Code Type Description Date Performed Performing Physician [id number] CPT-4 METABOLIC PANEL TOTAL CA [facility]15-[facility] Functional status No functional or cognitive status [...]
--- OUTSIDE RECORDS SUMMARY | 2016-09-18 09:44 | XMS REPORT ---
Author Author [facility]. Organization [facility] Address [address] [place] [address] Phone [phone] Summary purpose CCDA Sent to [facility] Chief Complaint and Reason for [...] diagnostic tests and/or laboratory data RESULTS CBC [id number] Result Normal Range Units WBC 7.62 4.8-10.8 x103/mm3 Neutrophil % 57.5 50-70 % Lymph % 27.8 20-50 % [place] % H 9.1 1.0-9.0 % Eosinophil % H 5.2 0-4 % Basophil % 0.4 0-2 % Neutrophil # 4.38 3.0-7.0 x103/mm3 Lymph # 2.12 1.0-4.0 x103/mm3 [place] # 0.69 0.0-0.8 x103/mm3 Eosinophil # 0.40 0-0.5 x103/mm3 Basophil # 0.03 0-0.2 x103/mm3 RBC 4.50 4.20-5.40 x103/mm3 HGB 14.4 12.0-16.0 g/dl HCT 42.0 37.0-47.0 % MCV 93.3 81-99 FL MCH H 32.0 27.0-31.0 pg MCHC 34.3 32.0-36.0 g/dl RDW 14.6 12-15 % Platelet 252 150-400 x103/mm3 MPV 9.9 6.0-10.0 FL Chemistry Group [id number] Result Normal Range Units Sodium 138 134-145 mmol/L Potassium 4.0 3.6-5.0 mmol/L Chloride L 91 98-107 mmol/L CO2 H 34 22-30 mmol/L Glucose 90 75-110 mg/dl BUN H 26 9-20 mg/dl Creatinine 1.26 0.8-1.7 mg/dl eGFR 51 ml/min. Total Protein 6.7 6.3-8.2 g/dl Albumin 3.5 3.5-5.0 g/dl Calcium 9.4 8.4-10.2 mg/dl Alk Phos 55 38-126 U/L AST 18 14-36 U/L ALT L 8 11-66 U/L T Bili .4 0.2-1.3 mg/dl A/G Ratio 1.1 Ratio History [...]
--- OUTSIDE RECORDS SUMMARY | 2016-09-18 09:44 | XMS REPORT ---
Author Author [facility]. Organization [facility] Address [address] [place] [address] Phone [phone] Summary purpose CCDA Sent to [facility] Chief Complaint and Reason for Visit No authorized Reason for Visit (Admitting Diagnosis) is available for this visit. Problem list Condition Status Certainty Chronicity Onset .Fever Discharged .Dehydration Discharged Encounters The following conditions tracked for encounter diagnoses were recorded for this visit: Finding or Diagnosis Status Certainty Chronicity Onset .Fever Discharged .Dehydration Discharged Medications Discharge Medications Status Medication Directions Current acetaminophen (TYLENOL) 500 mg: TABLET 1-2 TAB oral EVERY SIX HOURS NEEDED for PAIN Current amLODIPine (NORVASC): TABLET 10 MG oral DAILY Current ASPIRIN 81 mg: TAB CHEW 81 MG oral DAILY Current atorvastatin (LIPITOR): TABLET 40 MG oral HS Current CEFTRIAXONE (ROCEPHIN) 1 GM injection Give IV DAILY Current hydrochlorothiazide (HCTZ): capsule 12.5 MG oral DAILY Current metoprolol succinate (TOPROL XL) 25 mg: ER 24HR Tab 25 MG oral DAILY Current omeprazole (PRILOSEC): Cap DR 20 MG oral BEFORE BREAKFAST Current sertraline (ZOLOFT) 50 mg: TABLET 100 MG oral HS Stopped Aleve 220 mg tablet 220 microgram(s) oral BID NEEDED xpath-functions" xmlns:xs="[email or web address]/[email or web address] Ther[employer] PowerLSchema" />PRN Stopped amLODIPine 5 mg tablet 5 miligram(s) oral DAILY Stopped Aspirin Child 81 mg chewable tablet 81 miligram(s) oral DAILY Stopped atorvastatin 40 mg tablet 40 miligram(s) oral DAILY Stopped bisacodyl 5 mg tablet 5 miligram(s) oral DAILY NEEDED xpath-functions" xmlns:xs="[email or web address]/XMLSchema" />Bisacodyl 5 mg tabs, EC 1daily PRN Stopped Colace 100 mg capsule 100 miligram(s) oral DAILY Stopped Coumadin 1 mg tablet 3 miligram(s) oral DAILY xpath-functions" xmlns:xs="[email or web address]/[employer] Ther[employer] PowerLSchema" />1 mg 3 tabs daily or as directed Stopped Coumadin 5 mg tablet 5 miligram(s) oral DAILY Stopped HYDROcodone 5 mg-acetaminophen 325 mg tablet 10 miligram(s) oral SIX TIMES A DAY NEEDED xpath-functions" xmlns:xs="http://[email or web address] Software/2000/[employer] Ther[employer] PowerLSchema" />Ezel 10/325 mg. 1 or 2 tabs Q4-6 hrs PRN pain Stopped lisinopril 20 mg-hydrochlorothiazide 12.5 mg tablet 20 miligram(s) oral DAILY xpath-functions" xmlns:xs="http://wwwComposite Software/2000/[employer] Ther[employer] PowerLSchema" />20/12.5 mg tabs 2 daily Stopped MS Contin 30 mg tablet,extended release 30 miligram(s) oral TID NEEDED xpath-functions" xmlns:xs="http://wwwComposite Software/2000/[employer] PowerLSchema" />about every 8 hours Stopped sertraline 100 mg tablet 100 miligram(s) oral DAILY Stopped Toprol XL 25 mg tablet,extended release 25 miligram(s) oral DAILY Stopped Zofran ODT 4 mg disintegrating tablet 4 miligram(s) oral QID NEEDED xpath-functions" xmlns:xs="http://wwwComposite Software/[employer] Ther[employer]LSchema" />PRN nausea Allergies, adverse reactions, alerts Allergen Category Ingredient Status Reaction Severity Onset No Allergy Information Available Drug No Allergy Information Available Inactive No Known Drug Allergy No Known Drug Allergy No Known Drug Allergy Active No Known Food Allergy No Known Food Allergy No Known Food Allergy Active Immunizations No immunizations recorded for this patient visit Relevant diagnostic tests and/or laboratory data RESULTS [id number]:35:54 Discharge Summary home on [facility] CBC 14-46-164419:10:00 Result Normal Range Units WBC H 11.87 4.8-10.8 x103/mm3 Neutrophil % 66.4 50-70 % Lymph % L 19.3 20-50 % [place] % H 9.8 1.0-9.0 % Eosinophil % 4.0 0-4 % Basophil % 0.5 0-2 % Neutrophil # H 7.88 3.0-7.0 x103/mm3 Lymph # 2.29 1.0-4.0 x103/mm3 [place] # H 1.16 0.0-0.8 x103/mm3 Eosinophil # 0.48 0-0.5 x103/mm3 Basophil # 0.06 0-0.2 x103/mm3 RBC L 2.93 4.20-5.40 x103/mm3 HGB L 8.5 12.0-16.0 g/dl HCT L 26.3 37.0-47.0 % MCV 89.8 81-99 FL MCH 29.0 27.0-31.0 pg MCHC 32.3 32.0-36.0 g/dl RDW 15.0 12-15 % Platelet 369 150-400 x103/mm3 MPV 9.4 6.0-10.0 FL :15:00 Result Normal Range Units WBC H 11.84 4.8-10.8 x103/mm3 Neutrophil % H 72.8 50-70 % Lymph % L 13.5 20-50 % [place] % H 10.3 1.0-9.0 % Eosinophil % 2.9 0-4 % Basophil % 0.5 0-2 % Neutrophil # H 8.62 3.0-7.0 x103/mm3 Lymph # 1.60 1.0-4.0 x103/mm3 [place] # H 1.22 0.0-0.8 x103/mm3 Eosinophil # 0.34 0-0.5 x103/mm3 Basophil # 0.06 0-0.2 x103/mm3 RBC L 3.06 4.20-5.40 x103/mm3 HGB L 8.8 12.0-16.0 g/dl HCT L 27.1 37.0-47.0 % MCV 88.6 81-99 FL MCH 28.8 27.0-31.0 pg MCHC 32.5 32.0-36.0 g/dl RDW 14.8 12-15 % Platelet 303 150-400 x103/mm3 MPV 9.4 6.0-10.0 FL :05:00 Result Normal Range Units WBC 10.08 4.8-10.8 x103/mm3 Neutrophil % H 77.2 50-70 % Lymph % L 8.2 20-50 % [place] % H 11.8 1.0-9.0 % Eosinophil % 2.3 0-4 % Basophil % 0.5 0-2 % Neutrophil # H 7.78 3.0-7.0 x103/mm3 Lymph # L 0.83 1.0-4.0 x103/mm3 [place] # H 1.19 0.0-0.8 x103/mm3 Eosinophil # 0.23 0-0.5 x103/mm3 Basophil # 0.05 0-0.2 x103/mm3 RBC L 3.10 4.20-5.40 x103/mm3 HGB L 9.0 12.0-16.0 g/dl HCT L 27.4 37.0-47.0 % MCV 88.4 81-99 FL MCH 29.0 27.0-31.0 pg MCHC 32.8 32.0-36.0 g/dl RDW 14.6 12-15 % Platelet 219 150-400 x103/mm3 MPV 9.6 6.0-10.0 FL :00:00 Result Normal Range Units WBC H 10.94 4.8-10.8 x103/mm3 Neutrophil % H 85.5 50-70 % Lymph % L 5.3 20-50 % [place] % 8.6 1.0-9.0 % Eosinophil % 0.4 0-4 % Basophil % 0.2 0-2 % Neutrophil # H 9.36 3.0-7.0 x103/mm3 Lymph # L 0.58 1.0-4.0 x103/mm3 [place] # H 0.94 0.0-0.8 x103/mm3 Eosinophil # 0.04 0-0.5 x103/mm3 Basophil # 0.02 0-0.2 x103/mm3 RBC L 3.19 4.20-5.40 x103/mm3 HGB L 9.3 12.0-16.0 g/dl HCT L 27.7 37.0-47.0 % MCV 86.8 81-99 FL MCH 29.2 27.0-31.0 pg MCHC 33.6 32.0-36.0 g/dl RDW 14.1 12-15 % Platelet 202 150-400 x103/mm3 MPV H 10.2 6.0-10.0 FL [id number]:50:00 Result Normal Range Units WBC HC 15.96 4.8-10.8 x103/mm3 REP/VERIFIED BY [facility] CALLED TO LAKESHIA @ 12:BY MAC Neutrophil % HC 91.1 50-70 % REP/VERIFIED BY LL CALLED TO LAKESHIA @ 12:BY MAC Lymph % L 3.6 20-50 % [place] % 5.0 1.0-9.0 % Eosinophil % 0.2 0-4 % Basophil % 0.1 0-2 % Neutrophil # H 14.54 3.0-7.0 x103/mm3 Lymph # L 0.57 1.0-4.0 x103/mm3 [place] # 0.80 0.0-0.8 x103/mm3 Eosinophil # 0.03 0-0.5 x103/mm3 Basophil # 0.02 0-0.2 x103/mm3 RBC L 3.89 4.20-5.40 x103/mm3 HGB L 11.3 12.0-16.0 g/dl HCT L 33.7 37.0-47.0 % MCV 86.6 81-99 FL MCH 29.0 27.0-31.0 pg MCHC 33.5 32.0-36.0 g/dl RDW 14.3 12-15 % Platelet 245 150-400 x103/mm3 MPV 9.9 6.0-10.0 FL Manual Differential [id number]:50:00 Result Normal Range Units Seg 87.0 Lymph 6.0 [place] 2.0 Bands 5.0 Urinalysis 11-27-449279:40:00 Result Normal Range Units Site CC Result Amended on 2016-07-26 at 14:39:51. Previous status was FR. Color Yellow Result Amended on 2016-07-26 at 14:39:51. Previous status was FR. Urine Appearance SLCLOUDY Specific [place] 1.015 1.005-1.030 Result Amended on 2016-07-26 at 14:39:51. Previous status was FR. pH 5.0 5.0-9.0 Result Amended on 2016-07-26 at 14:39:51. Previous status was FR. Protein AB 2+ Negative Result Amended on 2016-07-26 at 14:39:51. Previous status was FR. Glucose Negative Negative Result Amended on 2016-07-26 at 14:39:51. Previous status was FR. Ketones Negative Negative Result Amended on 2016-07-26 at 14:39:51. Previous status was FR. Bilirubin Negative Negative Result Amended on 2016-07-26 at 14:39:51. Previous status was FR. Blood AB 2+ Negative Result Amended on 2016-07-26 at 14:39:51. Previous status was FR. CALLED TO NURSING/LF @14:05 BY MR. Nitrite AB Positive Negative Result Amended on 2016-07-26 at 14:39:51. Previous status was FR. SENT FOR C & S. CALLED TO NURSING/LF @14:05 BY . Urobilinogen 0.2 0.20 mg/dl Result Amended on 2016-07-26 at 14:39:51. Previous status was FR. Leukocyte AB 1+ Negative Result Amended on 2016-07-26 at 14:39:51. Previous status was FR. CALLED TO NURSING/LF @14:05 BY MR. SENT FOR C & S. Chemistry Group :15:00 Result Normal Range Units Sodium 139 134-145 mmol/L Potassium 4.2 3.6-5.0 mmol/L Chloride 101 98-107 mmol/L CO2 H 32 22-30 mmol/L Glucose 103 75-110 mg/dl BUN H 26 9-20 mg/dl Creatinine 1.52 0.8-1.7 mg/dl eGFR 34 ml/min. Calcium 8.4 8.4-10.2 mg/dl :05:00 Result Normal Range Units Sodium 141 134-145 mmol/L Potassium 3.6 3.6-5.0 mmol/L Chloride 100 98-107 mmol/L CO2 H 33 22-30 mmol/L Glucose 95 75-110 mg/dl BUN H 32 9-20 mg/dl Creatinine 1.68 0.8-1.7 mg/dl eGFR 30 ml/min. Calcium L 8.2 8.4-10.2 mg/dl :00:00 Result Normal Range Units Sodium 135 134-145 mmol/L Potassium L 3.0 3.6-5.0 mmol/L Chloride 98 98-107 mmol/L CO2 28 22-30 mmol/L Glucose 105 75-110 mg/dl BUN H 43 9-20 mg/dl Creatinine H 1.73 0.8-1.7 mg/dl eGFR 29 ml/min. Calcium L 8.2 8.4-10.2 mg/dl :50:00 Result Normal Range Units Sodium L 133 134-145 mmol/L Potassium L 3.2 3.6-5.0 mmol/L Chloride L 90 98-107 mmol/L CO2 28 22-30 mmol/L Glucose H 117 75-110 mg/dl BUN H 51 9-20 mg/dl Creatinine H 2.42 0.8-1.7 mg/dl eGFR 20 ml/min. Total Protein 8.0 6.3-8.2 g/dl Albumin 3.6 3.5-5.0 g/dl Calcium 9.0 8.4-10.2 mg/dl Alk Phos 117 38-126 U/L AST 34 14-36 U/L ALT 22 11-66 U/L T Bili .9 0.2-1.3 mg/dl A/G Ratio .8 Ratio Coagulation Group [id number]:10:00 Result Normal Range Units Protime H 24.1 9.5-12.3 Sec INR 2.2 :15:00 Result Normal Range Units Protime H 29.6 9.5-12.3 Sec INR 2.7 :05:00 Result Normal Range Units Protime H 37.8 9.5-12.3 Sec INR 3.4 :00:00 Result Normal Range Units Protime H 51.2 9.5-12.3 Sec Result Amended on 2016-07-27 at 08:12:12. Previous status was FR. INR HC 4.6 Result Amended on 2016-07-27 at 08:12:12. Previous status was FR. CALLED TO NURSING/SD @08:10 BY MR :50:00 Result Normal Range Units Protime H 42.9 9.5-12.3 Sec INR HC 3.8 CALLED TO LAKESHIA 07/26/16 12:19 MAC Special Chemistry Group [id number]:50:00 Result Normal Range Units Troponin I 0.13 ng/ml NEGATIVE - 0.06-0.30 ng/ml INCONCLUSIVE - 0.31-0.64 ng/ml; Suggest Repeating in 2-4 hours POSITIVE - >0.64 ng/ml; Probable AMI TSH L 0.33 0.50-6.00 uIU/mL Reference Lab Group :45:00 Result Normal Range Units Culture Urine See Comment .Site: Received : 07/26/16 20:33 .Order#: [id number] Urine Culture FINAL 07/28/16 07:52 S .Escherichia coli .>100,000 cfu/ml . E. coli Antibiotic REYNALDO INT Ampicillin <=2 S Ampicillin/sulbactam <=2 S Cefazolin<=4 S Ceftriaxone<=1 S Ciprofloxacin <=0.25 S Gentamicin <=1 S Nitrofurantoin <=16 S Trimethoprim/Sulfa <=20 S .S=SUSCEPTIBLE I=INTERMEDIATE R=RESISTANT S-DD=SUSCEPTIBLE, DOSE DEPENDENT .S: [facility] [place] [facility][id number] [place] FOR RESULTS: * - NEW RESULT - RESULT WAS MODIFIED AFTER FINAL STATUS SET Urine Culture performed at [facility] Reference Lab, [address] [place] [address] [employer] Aileen Ashton DO [id number]:55:00 Result Normal Range Units Culture Blood Source See Comment Result Amended on 2016-07-30 at 08:36:21. Previous status was FR. Test Culture Blood Source with result ofSee Comment was originally reported asBLOOD 2 and was changed on 07/27/2016 12:16 by AMS Comment deleted 07/28/2016 19:32 by AMS : .Site: Received : 07/26/16 20:33 .Order#: [id number] Blood Culture PRELIM 07/27/16 12:15 F .No growth after 12 hours incubation. Nursing unit will be . called if growth is detected. .- .F: Performed at: [facility], [address] [place] [address], SHANKAR FOR RESULTS: * - NEW RESULT - RESULT WAS MODIFIED AFTER FINAL STATUS SET Blood Culture [place] [address] [employer] Aileen Ashton DO Test Culture Blood Source with result ofSee Comment was originally reported asSee Comment and was changed on 07/28/2016 19:32 by AMS Comment deleted 07/28/2016 20:43 by AMS : .Site: Received : 07/26/16 20:33 .Order#: [id number] Critical value called, and read-back verified. Called to Shayy Rich RN, 07/28/2016 19:31 by SOL Blood Culture PRELIM 07/28/16 19:31 F .Gram negative bacillus observed in the gram stain. .Further work-up to follow. .F: Performed at: [facility], [address] [place] [address], [place]ANKAR FOR RESULTS: * - NEW RESULT - RESULT WAS MODIFIED AFTER FINAL STATUS SET Blood Culture performed at [facility], [address] [place] [address] [employer] Aileen Ashton DO Test Culture Blood Source with result ofSee Comment was originally reported asSee Comment and was changed on 07/28/2016 20:43 by AMS Comment deleted 07/29/2016 06:42 by AMS : .Site: Received : 07/26/16 20:33 .Order#: [id number] Critical value called, and read-back verified. Called to Shayy Rich RN, 07/28/2016 19:31 by SBAU Blood Culture PRELIM 07/28/16 20:42 F .Gram negative bacillus .F: Performed at: [facility], [address] [place] [address], [place]ANKAR FOR RESULTS: * - NEW RESULT - RESULT WAS MODIFIED AFTER FINAL STATUS SET Blood Culture [place] [address] [employer] Aileen Ashton DO Test Culture Blood Source with result Sujit Miah was originally reported asSee Comment and was changed on 07/29/2016 06:42 by AMS Comment deleted 07/30/2016 08:34 by AMS : .Site: Received : 07/26/16 20:33 .Order#: [id number] Critical value called, and read-back verified. Called to Shayy Rich RN, 07/28/2016 19:31 by SBAU Blood Culture PRELIM 07/29/16 06:40 F .Escherichia coli .Susceptibility performed on blood culture collected 07/26/16 at 13:45 .F: Performed at: [facility], [address] [place] [address], [place]ANKAR FOR RESULTS: * - NEW RESULT - RESULT WAS MODIFIED AFTER FINAL STATUS SET Blood Culture [place] [address] [employer] Aileen Ashton DO .Site: Received : 07/26/16 20:33 .Order#: [id number] Critical value called, and read-back verified. Called to Shayy Rich RN, 07/28/2016 19:31 by SBSYED Blood Culture FINAL 07/30/16 08:33 F .Escherichia coli .Susceptibility performed on blood culture collected 07/26/16 at 13:45 .F: Performed at: [facility], [address] [place] [address], SHANKAR FOR RESULTS: * - NEW RESULT - RESULT WAS MODIFIED AFTER FINAL STATUS SET Blood Culture [place] [address] [employer] Aileen Ashton, Test Culture Blood Source with result ofSee Comment was originally reported asSee Comment and was changed on 07/30/2016 08:34 by AMS Culture Blood See Comment Result Amended on 2016-07-30 at 08:36:21. Previous status was FR. Test Culture Blood with result ofSee Comment was originally reported as See Comment and was changed on 07/28/2016 19:32 by AMS Test Culture Blood with result ofSee Comment was originally reported as See Comment and was changed on 07/28/2016 20:43 by AMS Test Culture Blood with result ofSee Comment was originally reported as See Comment and was changed on 07/29/2016 06:42 by AMS Test Culture Blood with result ofSee Comment was originally reported as See Comment and was changed on 07/30/2016 08:34 by AMS [id number]:50:00 Result Normal Range Units Culture Blood Source See Comment Result Amended on 2016-07-29 at 09:21:46. Previous status was FR. Test Culture Blood Source with result ofSee Comment was originally reported asBLOOD 1 and was changed on 07/27/2016 09:34 by AMS Comment deleted 07/27/2016 10:28 by AMS : .Site: Received : 07/26/16 20:33 .Order#: [id number] Critical value called, and read-back verified. Called to Comfort Issa 07/27/2016 09:34 by JCVAT Blood Culture PRELIM 07/27/16 09:34 F .Gram negative bacillus observed in the gram stain. .Further work-up to follow. .F: Performed at: [facility], [address] [place] [address], [facility] FOR RESULTS: * - NEW RESULT - RESULT WAS MODIFIED AFTER FINAL STATUS SET Blood Culture performed at [facility], [address] [place] [address] [employer] Aileen Ashton DO Test Culture Blood Source with result ofSee Comment was originally reported asSee Comment and was changed on 07/27/2016 10:28 by AMS Comment deleted 07/28/2016 06:49 by AMS : .Site: Received : 07/26/16 20:33 .Order#: [id number] Critical value called, and read-back verified. Called to Comfort Issa 07/27/2016 09:34 by JCRIT Blood Culture PRELIM 07/27/16 10:27 F .Gram negative bacillus .- .F: Performed at: [facility], [address] [facility] [place] FOR RESULTS: * - NEW RESULT - RESULT WAS MODIFIED AFTER FINAL STATUS SET Blood Culture performed at [facility], [address] [place] [facility] [place] [address] [employer] Aileen Ashton, Test Culture Blood Source with result Rosee Comment was originally reported asSee Comment and was changed on 07/28/2016 06:49 by AMS Comment deleted 07/29/2016 09:19 by AMS : .Site: Received : 07/26/16 20:33 .Order#: [id number] Critical value called, and read-back verified. Called to Comfort Issa 07/27/2016 09:34 by JCRIT Blood Culture PRELIM 07/28/16 06:48 F .Escherichia coli .- . E. coli Antibiotic REYNALDO INT Ampicillin <=2 S Ampicillin/sulbactam <=2 S Cefazolin<=4 S Cefepime <=1 S Ceftriaxone<=1 S Ciprofloxacin <=0.25 S Gentamicin <=1 S Piperacillin/tazobactam<=4 S Trimethoprim/Sulfa <=20 S .S=SUSCEPTIBLE I=INTERMEDIATE R=RESISTANT S-DD=SUSCEPTIBLE, DOSE DEPENDENT .F: Performed at: [facility], [address] , SHANKAR FOR RESULTS: * - NEW RESULT - RESULT WAS MODIFIED AFTER FINAL STATUS SET Blood Culture performed at [facility], [address] [place] [address] [employer] Aileen Ashton DO .Site: Received : 07/26/16 20:33 .Order#: [id number] Critical value called, and read-back verified. Called to Comfort Issa 07/27/2016 09:34 by JCRIT Blood Culture FINAL 07/29/16 09:18 F .Escherichia coli .- . E. coli Antibiotic REYNALDO INT Ampicillin <=2 S Ampicillin/sulbactam <=2 S Cefazolin<=4 S Cefepime <=1 S Ceftriaxone<=1 S Ciprofloxacin <=0.25 S Gentamicin <=1 S Piperacillin/tazobactam<=4 S Trimethoprim/Sulfa <=20 S .S=SUSCEPTIBLE I=INTERMEDIATE R=RESISTANT S-DD=SUSCEPTIBLE, DOSE DEPENDENT .F: Performed at: [facility], [address] [facility], SHANKAR FOR RESULTS: * - NEW RESULT - RESULT WAS MODIFIED AFTER FINAL STATUS SET Blood Culture performed at [facility], [address] [place] [facility] [place] [address] [employer] Aileen Ashton DO Test Culture Blood Source with result ofSee Comment was originally reported asSee Comment and was changed on 07/29/2016 09:19 by AMS Culture Blood See Comment Result Amended on 2016-07-29 at 09:21:46. Previous status was FR. Test Culture Blood with result ofSee Comment was originally reported as See Comment and was changed on 07/29/2016 09:19 by AMS Urinalysis with Microscopic [id number]:40:00 Result Normal Range Units Site CC Result Amended on 2016-07-26 at 14:39:51. Previous status was FR. Color Yellow Result Amended on 2016-07-26 at 14:39:51. Previous status was FR. Urine Appearance SLCLOUDY Specific [place] 1.015 1.005-1.030 Result Amended on 2016-07-26 at 14:39:51. Previous status was FR. pH 5.0 5.0-9.0 Result Amended on 2016-07-26 at 14:39:51. Previous status was FR. Protein AB 2+ Negative Result Amended on 2016-07-26 at 14:39:51. Previous status was FR. Glucose Negative Negative Result Amended on 2016-07-26 at 14:39:51. Previous status was FR. Ketones Negative Negative Result Amended on 2016-07-26 at 14:39:51. Previous status was FR. Bilirubin Negative Negative Result Amended on 2016-07-26 at 14:39:51. Previous status was FR. Blood AB 2+ Negative Result Amended on 2016-07-26 at 14:39:51. Previous status was FR. CALLED TO NURSING/LF @14:05 BY MR. Nitrite AB Positive Negative Result Amended on 2016-07-26 at 14:39:51. Previous status was FR. SENT FOR C & S. CALLED TO NURSING/LF @14:05 BY MR. Urobilinogen 0.2 0.20 mg/dl Result Amended on 2016-07-26 at 14:39:51. Previous status was FR. Leukocyte AB 1+ Negative Result Amended on 2016-07-26 at 14:39:51. Previous status was FR. CALLED TO NURSING/LF @14:05 BY MR. SENT FOR C & S. History of procedures No procedures recorded for this patient visit. Functional status Functional Status Finding Observation Time Dexterity Right-handed :44 Impaired Extremity o Yes (Please Specify) :44 Weight Bearing Statu Full 67-22-393072:54 Transferring/Ambulat Needs Assistance :44 Cane Yes :44 Walker Yes :44 Cognitive Status Finding Observation Time Level of Consciousne Alert 70-55-666990:37 Oriented to Person Yes :[address] Yes :37 Oriented to Time Yes 80-46-254337:37 Eyes - CYNDIE Yes 29-97-899350:00 Vital signs Type Value Date Respirations 16 :57 Pulse 87 :57 O2 Saturation 96% :57 Systolic Blood Press 120mm/HG 38-90-870326:57 Diastolic Blood Pres 64mm/HG 88-75-746354:57 Temperature (Fahr) 98.1Degrees :57 Height 63in 68-31-735883:30 Weight 170.6LB 03-44-831593:30 Social history Type Value Smoking Status CURRENT EVERY DAY SMOKER Treatment Plan No treatment plan text is available for this visit. Hospital discharge instructions Diet No restrictions Activity Level No restrictions Med Dispensed by Pro Cipro 500 mg po bid x 5 days (sent to pharmacy) Flu Vaccine Given Current/Not Needed Follow up with Dr Ortiz Appointment Date and Sunday08/02/16 Other Instructions Return or call for any return, increased or new symptoms.
[2016-09-18 09:52] VITALS: Ht 160 cm; Wt 77.9 kg
[2016-09-18 09:53] VITALS: BP 163/76; PULSE 72; RESP 14; TEMP 97.6; O2SAT 89
[2016-09-18 10:26] LABS: BASOPHILS # (AUTO) 0.1 T/MM3 (0-0.2); BASOPHILS % (AUTO) 0.8 % (0-2); EOSINOPHILS # (AUTO) 0.4 T/MM3 (0-0.5); EOSINOPHILS % (AUTO) 4.6 % (0-4); HCT - HEMATOCRIT 35.9 % (36-46); HGB - HEMOGLOBIN 11.7 GM/DL (12-16); IMMATURE GRANULOCYTE # (AUTO) 0.01 T/MM3 (0.00-0.03); IMMATURE GRANULOCYTE % (AUTO) 0.1 % (0.0-0.5); LYMPHOCYTES # (AUTO) 2.2 T/MM3 (1-4.8); LYMPHOCYTES % (AUTO) 26.8 % (23-45); MEAN CORPUSCULAR HGB 29.8 UUG (26-34); MEAN CORPUSCULAR HGB CONC(MCHC 32.6 GM/DL (31-37); MEAN CORPUSCULAR VOLUME 91.6 UM3 (80-100); MEAN PLATELET VOLUME 9.7 UM3 (9.4-12.4); MONOCYTES # (AUTO) 0.5 T/MM3 (0-0.8); NEUTROPHILS #(AUTO)-ABSOLUTE 5.1 T/MM3 (1.8-7.7); NEUTROPHILS % (AUTO) 61.7 % (33-66); RED BLOOD COUNT 3.92 M/MM3 (4.00-5.20); WBC - WHITE BLOOD COUNT 8.3 T/MM3 (4.5-11.0)
[2016-09-18 10:31] LABS: INR 0.97 (0.76-1.04); PROTHROMBIN TIME 10.6 SEC (9.31-12.49)
[2016-09-18 10:39] LABS: ALBUMIN/GLOBULIN RATIO 1.1 RATIO (1.1-2.2); ALKALINE PHOSPHATASE 65 U/L (38-126); ALT (SGPT) 28 U/L (9-52); ANION GAP 13 MEQ/L (5-15); AST (SGOT) 34 U/L (14-36); BUN/CREATININE RATIO 22 RATIO (6-26); CALCIUM 9.7 MG/DL (8.4-10.2); CHLORIDE 102 MEQ/L (98-107); CO2 - CARBON DIOXIDE 29 MEQ/L (22-30); CREATININE 1.5 MG/DL (0.7-1.2); GLOMERULAR FILTRATION RATE 34; GLUCOSE 112 MG/DL (65-110); POTASSIUM 4.1 MEQ/L (3.6-5); SODIUM 144 MEQ/L (134-144); TOTAL PROTEIN 7.6 G/DL (6.3-8.2)
--- NOTE | 2016-09-18 11:25 | ANESPREOP ---
Anesthesia Record Date and Time DATE: 09/18/16 TIME: 11:18 Pre-Op Diagnosis left hydronephrosis, solitary kidney Proposed Surgical Procedure CYSTOSCOPY POSS STENT NPO since: mn Allergies: Coded Allergies: No Known Drug Allergies (Verified Allergy, Unknown, 09/18/16) Ht/Wt/BMI Height: 5 ' 3.00 " Weight: 77.900 kg BMI: 30.4 kg/m2 Vital Signs Date Time Temp Pulse Resp B/P Pulse Ox O2 Delivery O2 Flow Rate FiO2 09/18/16 09:53 97.6 72 14 163/76 89 Room Air Medications Inpatient Medications Current Medications Medications (Trade) Dose Ordered Sig/Sriram Start Time Stop Time Status Last Admin Dose Admin Sodium Chloride 1,000 ml @ 50 mls/hr Q20H PRN 09/16/16 07:00 09/16/16 07:00 DC Sodium Chloride (Normal Saline IV) 1,000 ml @ 50 mls/hr Q20H PRN 09/18/16 07:00 09/18/16 10:33 50 MLS/HR Amlodipine Besylate (Amlodipine Besylate) 10 Mg Tablet, 10 MG PO DAILY, ( Reported) Last Taken: on 09/17/161699 Aspirin (Aspir 81) 81 Mg Tablet.dr, 1 TAB PO DAILY, (Reported) Last Taken: on 09/17/161699 Atorvastatin Calcium (Atorvastatin Calcium) 40 Mg Tablet, 1 TAB PO HS, (Reported) Last Taken: on 09/17/161699 Iron (Iron) 18 Mg Tablet, 1 TAB PO DAILY, ( Reported) Last Taken: on 09/17/161699 Lisinopril/Hydrochlorothiazide (Lisinopril- Hctz 20-12.5 mg Tab) 1 Each Tablet, 1 TAB PO DAILY, (Reported) Last Taken: on 09/17/161699 Metoprolol Tartrate (Metoprolol Tartrate) 25 Mg Tablet, 25 MG PO WB, (Reported) Take 1 tab, by mouth, one time a day (with breakfast). Last Taken: on 09/17/161699 Sertraline (Zoloft) 100 Mg Tablet, 100 MG PO DAILY, (Reported) Last Taken: on 09/17/161699 Warfarin Sodium (Warfarin Sodium) 5 Mg Tablet, 1 TAB PO DAILY, (Reported) Last Taken: on 09/12/16 Currently on Beta Dc: Yes Beta Dc Last Taken: METOPROLOL 25MG 09/17 @ 1700 Medical/Surgical History Anesthesia PMH: Reports: *Hypertension, *UT (2012, 3 MIS, stented 3 difffernt times, last seen a cardiogist 2 months ago, ), Cancer (HX OF UTERINE), Renal Disease (ONLY HAS 1 KIDNEY), Denies: *Diabetes, Anesthesia Reactions (NO AIRWAY ISSUES), Arthritis, Blood Transfusion Reac, Clotting Problems, Glaucoma, Malignant Hyperthermia, Sleep Apnea, Thyroid Disease Smoking Status: Former smoker (10 months ago ) Has pt. smoked today?: No Substance Use Type: does not use Alcohol Intake: none HX of Last Menstrual Period: HYST Past Surgical History Orthopedic Surgeries: back Abdominal Surgeries: Genitourinary Surgeries: Yes - R NEPHRECTOMY Cardiac Surgeries: Yes - STENT Endocrine Surgeries: Reproductive Surgeries: Yes - HYSTERECTOMY Neurological Surgeries: Ear Surgeries: Nose Surgeries: Throat Surgeries: Other Surgeries: Anesthesia Adverse Reactions: FOUND none Family Hx of Anesthesia Advers: none Hx of Motion Sickness: No Pertinent Findings Laboratory Tests 09/18/16 10:00 Test 09/18/16 10:00 Prothromb Time International Ratio 0.97 (0.76-1.04) EKG Rhythm: Sinus Rhythm Physical Exam Respiratory: Bilat breath sounds equal, Lungs clear Cardiovascular: FOUND Regular rate, rhythm, FOUND No murmur Airway Assessment Mallampati Score: III TMD: 3 Fingerbreadths Neck Extension: Good Overall Assessment: May Be Diff Intubation ASA: 3 Plan Anesthesia Plan: TIVA, GETA Regional: Spinal Discussion Discussed risks/options/alternatives of anesthesia and questions answered. Patient consents. Nursing pain assessment noted. Attestation Statement Prior to the delivery of any anesthetic medication, I examined the patient, developed the plan, obtained the patient's consent and discussed the risk and benefits of the procedure with the patient/guardian. JOSE VILLATORO CRNA Sep 18, 2016 11:22
[2016-09-18] MEDS ORDERED: IOHEXOL 300 MG/ML 50ml INJECTION ONE (12:04)
[2016-09-18] MEDS ORDERED: PROPOFOL 500mg 50 ML IV ONE (12:10)
[2016-09-18] MEDS ORDERED: FENTANYL 100mcg/2ml INJECTION ONE (12:12)
[2016-09-18] MEDS ORDERED: D5-1/2 NS KCL 20 MEQ 1,000 ML IV SCH (12:14)
[2016-09-18] MEDS ORDERED: CEFAZOLIN 1 G in NORMAL SALINE 100 ML IV ONE (12:15)
[2016-09-18] MEDS ORDERED: MORPHINE SULFATE 4 MG SYRINGE IV PRN (12:30)
[2016-09-18 12:48] VITALS: BP_SYST 109; BP_SYST 129; BP_DIAS 60; PULSE 61; RESP 18; TEMP 97.7; O2SAT 100
[2016-09-18 13:08] VITALS: BP 149/67; PULSE 60; RESP 16; O2SAT 93
[2016-09-18 13:20] VITALS: BP 169/70; PULSE 62; RESP 18; O2SAT 94
[2016-09-18 13:35] VITALS: BP 167/77; PULSE 70; RESP 18; O2SAT 97
--- NOTE | 2016-09-18 13:40 | ANESPO ---
Post-Op Note Date 09/18/16 Time: 13:40 Status Pt Participated in Evaluation: Pt participated in person Vital Signs Date Time Temp Pulse Resp B/P Pulse Ox O2 Delivery O2 Flow Rate FiO2 09/18/16 13:08 60 16 149/67 93 Room Air 09/18/16 12:48 97.7 6.00 Respiratory Function: Airway patent, Regular respirations Cardiovascular Function: Regular pulse Mental Status: Alert/oriented Pain Level Intensity: 0 Hydration: Taking po fluids Complications during Recovery None apparent Follow-Up Instructions Instructions Per Surgeon FLAVIO ARAUJO CRNA Sep 18, 2016 13:40
--- NOTE | 2016-09-18 16:37 | DI ---
Indication: ITS.REASON: LEFT RETROGRADE/STENT INSERTION PROCEDURE: RF RETROGRADE PYELOGRAM LEFT: Encounter: Initial Comparison: None Findings: Six intraoperative spot views of the retrograde ureterogram demonstrate filling of the ureter with contrast filling the central renal collecting system with some blunting of the calyces. Subsequent later images demonstrate placement of a ureteral stent with the upstream pigtail overlying the renal pelvis. Impression: Intraoperative spot view Images from ureterogram with placement of ureteral stent. .
--- NOTE | 2016-09-19 10:13 | OPNOTEF ---
DATE OF PROCEDURE 08/29/2016 PREOPERATIVE DIAGNOSIS Solitary left kidney, left hydronephrosis, history or right UPJ obstruction, and renal atrophy. POSTOPERATIVE DIAGNOSIS Solitary left kidney, left hydronephrosis, history or right UPJ obstruction, and renal atrophy, right UPJ obstruction. PROCEDURE Cystoscopy, left retrograde pyelogram, left diagnostic ureteroscopy, left ureteral stent placement. SURGEON Johnathan Easton MD ANESTHESIA General. COMPLICATIONS None. 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 Right kidney was removed by me a few years ago. She comes back with hydronephrosis on the opposite side. Renogram showed some delayed drainage. She was brought for a retrograde. RADIOGRAPHIC FINDINGS Left retrograde pyelogram taken through a 5 Chadian open-end ureteral catheter using a total of 20 cc of Omnipaque 300. The distal ureter, mid ureter and upper ureter are normal. There is a "jet effect" of contrast as it goes across the upper ureter and the UPJ and into a dilated renal pelvis. The renal pelvis itself is moderately enlarged. There is some mild blunting of the calices. No filling defects are noted. A stent is later placed in good position. DESCRIPTION OF PROCEDURE After informed consent was obtained, the patient is brought to the operating room and general anesthesia induced. She is placed in the lithotomy position, prepped and draped in the usual fashion. Time-out is held. I insert a 22 Chadian rigid cystoscope in the patient's bladder and carefully evaluate the bladder. There are no stones, tumors, foreign bodies. I cannulate both ureteral orifices with an open-end ureteral catheter and perform retrograde pyelogram. I advance the wire up the ureteral catheter and into the bladder and up the ureter. I remove the cystoscope. I try to pass a digital flexible ureteroscope over the wire but it doesn't want to go through the intramural ureter. I remove this and use a ____? rigid ureteroscope. As I advance this, I can see at the upper edge of the intramural ureter there is a mild narrowing that is about 5 Chadian in size. I'm able to gently dilate it using the ureteroscope. I advance the rigid ureteroscope up to the upper third of the ureter. There are no other ureteral lesions. I remove the rigid ureteroscope. I try to pass a flexible digital ureteroscope over the wire once again in the same location. I'm not able to pass that. Rather than traumatizing the ureter with balloon dilation when we're thinking about a future pyeloplasty, I elected to place a stent as it is only mild stenosis. I backload the wire on the cystoscope and pass a 6 x 24 double-J stent. It passes without any difficulty through the area of stenosis in the lower ureter. There is mild resistance in passing through the UPJ. It curls appropriately in both the bladder and the renal pelvis. Bladder is drained. She is awoken from her anesthetic and tolerated the procedure without complication. PLAN We will see her back in 2-3 weeks' time. Will get a repeat renogram and a basic chemistry before she comes back. RACHELL
== END 2016-09-18 13:45 | disposition home or self-care (01) ==
LOC: SCU 09:36
PROVIDERS: ATTEND Urology
DX: N13.0 Hydronephrosis with ureteropelvic junction obstruction (principal); I12.9 Hypertensive chronic kidney disease with stage 1 through stage 4 chronic kidney disease, or unspecified chronic kidney disease; N18.3 Chronic kidney disease, stage 3 (moderate); I25.10 Atherosclerotic heart disease of native coronary artery without angina pectoris; E78.00 Pure hypercholesterolemia, unspecified; F32.9 Major depressive disorder, single episode, unspecified; I25.2 Old myocardial infarction; Z79.01 Long term (current) use of anticoagulants; Z79.82 Long term (current) use of aspirin; Z79.899 Other long term (current) drug therapy; Z90.5 Acquired absence of kidney; Z87.440 Personal history of urinary (tract) infections; Z86.718 Personal history of other venous thrombosis and embolism; Z86.711 Personal history of pulmonary embolism; Z87.891 Personal history of nicotine dependence; Z85.42 Personal history of malignant neoplasm of other parts of uterus; Z85.43 Personal history of malignant neoplasm of ovary; Z90.710 Acquired absence of both cervix and uterus
CPT/HCPCS: 36415; 52332; 52351; 74420; 80053; 85025; 85610; 93005; C2617; J0690; J3010; J7030; J7050; Q9967

== ENCOUNTER → 2016-09-28 | Outpatient (CLI) | payer MEDICARE, BC ==
[~2016-09-28] MED LIST changes: -LIDOCAINE 1% (10mg/ml) 2ml SDV INJ ONE; -NORMAL SALINE 1,000 ML IV PRN; +SALINE FLUSH 10ml SYRINGE ONE
--- NOTE | 2016-09-28 11:32 | DI ---
Indication: ITS.REASON: N13.30 Unspecified hydronephrosis PROCEDURE: NM RENAL SCAN W/LASIX: Encounter: Initial Comparison: August 30, 2016 Indication: The patient is a 71-year-old female with a history of prior right nephrectomy and recurrent UTIs. This exam is requested to evaluate renal function and renal collecting system patency. Technique: 10.1 mCi of Tc-99m MAG3 was administered intravenously and posterior planar images were obtained. 23 mg of Lasix was administered intravenously at 20 minutes into the study. Time/activity curves were calculated. Findings: Arterial flow images demonstrate good perfusion of the left kidney. Excretory phase images show radiotracer collection and excretion down the left collecting system. The renogram curve shows slow radiotracer excretion from the left kidney before the administration of Lasix with some excretory response following Lasix. There is better clearance of the tracer seen on the more delayed phase imaging at 30 minutes and beyond. Diuretic halftime is prolonged at greater than 20 minutes. There is no evidence of high-grade obstruction of the kidney. Hydronephrosis has improved, currently mild. Incidental note is made of activity pooling within what appears to be the gallbladder, likely of no clinical importance. Impression: 1. Normal perfusion of the left kidney. 2. Stable mild renal functional impairment. 3. No evidence of high-grade obstruction. 4. Improved mild left hydronephrosis. .
[2016-09-28 11:52] LABS: ANION GAP 14 MEQ/L (5-15); BUN/CREATININE RATIO 21 RATIO (6-26); CALCIUM 10.5 MG/DL (8.4-10.2); CHLORIDE 100 MEQ/L (98-107); CO2 - CARBON DIOXIDE 31 MEQ/L (22-30); CREATININE 1.5 MG/DL (0.7-1.2); GLOMERULAR FILTRATION RATE 34; GLUCOSE 107 MG/DL (65-110); POTASSIUM 4.6 MEQ/L (3.6-5); SODIUM 145 MEQ/L (134-144)
== END ==
LOC: IMA 09:34
PROVIDERS: ATTEND Urology
DX: N13.30 Unspecified hydronephrosis (principal)
CPT/HCPCS: 36415; 78708; 80048; A9562